=== PATIENT | female | born 1955 | race Caucasian/White ===

== ENCOUNTER 2022-09-13 06:20 | Outpatient (CLI) | payer MEDICARE, OTHER ==
[2022-09-13 06:50] LABS: BASOPHILS % (AUTO) 0.4 %; EOSINOPHILS # (AUTO) 0.1 10^3/uL (0.0-0.7); EOSINOPHILS % (AUTO) 1.9 %; HCT - HEMATOCRIT 40.8 % (37.0-47.0); HGB - HEMOGLOBIN 13.5 g/dL (12.0-16.0); LYMPHOCYTES % (AUTO) 43.6 %; MEAN CORPUSCULAR HEMOGLOBIN 31.2 pg (27.0-31.0); MEAN CORPUSCULAR HGB CONC 33.1 g/dL (32.0-36.0); MEAN CORPUSCULAR VOLUME 94.2 fL (81.0-99.0); MEAN PLATELET VOLUME 9.6 fL (7.9-10.8); MONOCYTES # (AUTO) 0.5 10^3/uL (0.0-1.0); MONOCYTES % (AUTO) 6.9 %; NEUTROPHILS # (AUTO) 3.2 10^3/uL (1.5-6.6); NEUTROPHILS % (AUTO) 47.1 %; PLT - PLATELET COUNT 272 10^3/uL (130-450); RED BLOOD COUNT 4.33 10^6/uL (4.20-5.40); RED CELL DISTRIBUTION WIDTH 12.2 % (12.0-15.0); WHITE BLOOD COUNT 6.8 x10^3/uL (4.8-10.8)
[2022-09-13 07:11] LABS: ALBUMIN 3.7 g/dL (3.2-5.5); ALBUMIN/GLOBULIN RATIO 1.3 (1.0-2.2); ALKALINE PHOSPHATASE 167 IU/L (42-121); ALT ALANINE AMINOTRANSFERASE 35 IU/L (10-60); AST ASPARTATE AMINOTRANSFERASE 38 IU/L (10-42); BILIRUBIN,TOTAL 0.4 mg/dL (0.2-1.0); BUN - BLOOD UREA NITROGEN 10 mg/dL (6-20); CALCIUM 8.9 mg/dL (8.5-10.3); CARBON DIOXIDE - CO2 27 mmol/L (21-32); CHLORIDE 110 mmol/L (101-111); CHOL/HDL RATIO 2.6 (<4.4); CHOLESTEROL 168 mg/dL; CREATININE 0.7 mg/dL (0.4-1.0); GFR - MDRD 84 (>89); GLUCOSE 106 mg/dL (70-100); HDL CHOLESTEROL 65 mg/dL; POTASSIUM 4.2 mmol/L (3.5-5.0); SODIUM 141 mmol/L (135-145); TOTAL PROTEIN 6.5 g/dL (6.7-8.2); TRIGLYCERIDES 33 mg/dL
[2022-09-13 07:22] LABS: THYROID STIMULATING HORMONE 1.68 uIU/mL (0.34-5.60)
[2022-09-13 08:08] LABS: ESTIMATED AVERAGE GLUCOSE 100 mg/dL (70-100); HEMOGLOBIN A1c% 5.1 % (4.27-6.07)
== END 2022-09-13 06:21 | disposition home or self-care (01) ==
LOC: LAB 06:20
PROVIDERS: ATTEND Nurse Practitioner Family
DX: Z00.00 Encounter for general adult medical examination without abnormal findings (principal); E03.9 Hypothyroidism, unspecified
CPT/HCPCS: 36415; 80053; 80061; 83036; 83721; 84153; 84443; 85025

== ENCOUNTER 2022-09-16 16:16 | Outpatient (CLI) | payer MEDICARE, OTHER ==
[2022-09-16 20:41] LABS: CHOL/HDL RATIO 2.4 (<4.4); CHOLESTEROL 191 mg/dL; HDL CHOLESTEROL 78 mg/dL; TRIGLYCERIDES 34 mg/dL
== END 2022-09-16 16:17 | disposition home or self-care (01) ==
LOC: LAB.N 16:16
PROVIDERS: ATTEND Family Medicine
DX: Z00.00 Encounter for general adult medical examination without abnormal findings (principal); R74.8 Abnormal levels of other serum enzymes
CPT/HCPCS: 36415; 80061; 83721; 84075; 84080

== ENCOUNTER 2022-09-29 09:50 | Outpatient (CLI) | payer MEDICARE, OTHER ==
--- NOTE | 2022-09-29 10:39 | DEXA Report ---
PROCEDURE: Dexa Spine and/or Hip INDICATIONS: POST MENOPAUSAL TECHNIQUE: Dual energy x-ray absorptiometry (DXA) was performed on a [employer] System. Regions measur ed are the AP Spine, femoral neck, and if needed forearm. COMPARISON: None. FINDINGS: Lumbar Spine: Bone Mineral Density 0.867 g/cm/cm,T score -2.6. Left Femoral Neck: Bone Mineral Density 0.709 g/cm/cm, T score -2.4. Left Hip: Bone Mineral Density 0.632 g/cm/cm,T score -3.0. (T score greater or equal to -1.0: NORMAL) (T score from -1.1 to -2.4: OSTEOPENIA) (T score less than or equal to -2.5 to: OSTEOPOROSIS) Impression: By WHO criteria, this patient has osteoporosis. Patients with diagnosis of osteoporosis or osteopenia should have regular bone mineral density assess ment. For those eligible for Medicare, routine testing is allowed once every 2 years. Testing frequ ency can be increased for patients who have rapidly progressing disease or for those who are receivin g medical therapy to restore bone mass. Reviewed by: Andrade Huerta MD on 09/29/2022 10:38 AM PDT Approved by: Andrade Huerta MD on 09/29/2022 10:38 AM PDT Station ID: [id number]
== END 2022-09-29 09:51 | disposition home or self-care (01) ==
LOC: DI 09:50
PROVIDERS: ATTEND Nurse Practitioner Family
DX: Z78.0 Asymptomatic menopausal state (principal); M81.0 Age-related osteoporosis without current pathological fracture

== ENCOUNTER 2022-10-01 15:06 | Outpatient (CLI) | payer MEDICARE, OTHER | END 2022-10-01 15:07 | disposition home or self-care (01) | LOC: LAB.N 15:06 | PROVIDERS: ATTEND Nurse Practitioner Family | DX: R74.8 Abnormal levels of other serum enzymes (principal) | CPT/HCPCS: 36415; 82977; 86381 ==

== ENCOUNTER 2022-10-10 09:16 | Outpatient (CLI) | payer MEDICARE, OTHER ==
[2022-10-10 10:04] LABS: ALBUMIN 4.3 g/dL (3.2-5.5); ALBUMIN/GLOBULIN RATIO 1.4 (1.0-2.2); BILIRUBIN,TOTAL 1.1 mg/dL (0.2-1.0); CALCIUM 9.5 mg/dL (8.5-10.3); CREATININE 0.7 mg/dL (0.4-1.0); TOTAL PROTEIN 7.4 g/dL (6.7-8.2)
== END 2022-10-10 09:17 | disposition home or self-care (01) ==
LOC: LAB 09:16
PROVIDERS: ATTEND Nurse Practitioner Family
DX: M81.0 Age-related osteoporosis without current pathological fracture (principal); Z13.220 Encounter for screening for lipoid disorders; R74.8 Abnormal levels of other serum enzymes
CPT/HCPCS: 36415; 80053; 83721

== ENCOUNTER 2023-04-11 16:11 | Outpatient (CLI) | payer MEDICARE, OTHER ==
--- NOTE | 2023-04-12 03:00 | XRAY Report ---
PROCEDURE: Hand 3+V BL INDICATIONS: PAIN OF BILATERAL HANDS,OA OF BOTH HANDS TECHNIQUE: 3 views of the right and left hand(s) acquired. COMPARISON: None. FINDINGS: Bones: Severe right first and moderate left first CMC joint degeneration. Mild bilateral scattered i nterphalangeal joint space narrowing and minimal spurring. No acute osseous abnormality. No suspicio us bony lesions. Soft tissues: No suspicious soft tissue calcifications or masses. IMPRESSION: Severe right first CMC joint degeneration, moderate left first CMC joint degeneration. Mild bilateral interphalangeal joint degeneration. No acute fracture. Reviewed by: Poornima Oliva MD on 04/12/2023 2:58 AM PST Approved by: Poornima Oliva MD on 04/12/2023 2:58 AM PST Station ID: [id number]
== END 2023-04-11 16:12 | disposition home or self-care (01) ==
LOC: DI 16:11
PROVIDERS: ATTEND Nurse Practitioner Family
DX: M18.0 Bilateral primary osteoarthritis of first carpometacarpal joints (principal); M19.041 Primary osteoarthritis, right hand; M19.042 Primary osteoarthritis, left hand

== ENCOUNTER 2023-10-14 07:35 | Outpatient (CLI) | payer MEDICARE, OTHER ==
[2023-10-14 07:46] LABS: BASOPHILS % (AUTO) 0.6 %; EOSINOPHILS # (AUTO) 0.1 10^3/uL (0.0-0.7); HCT - HEMATOCRIT 41.5 % (37.0-47.0); HGB - HEMOGLOBIN 13.4 g/dL (12.0-16.0); LYMPHOCYTES % (AUTO) 42.9 %; MEAN CORPUSCULAR HEMOGLOBIN 30.7 pg (27.0-31.0); MEAN CORPUSCULAR HGB CONC 32.3 g/dL (32.0-36.0); MEAN PLATELET VOLUME 9.3 fL (7.9-10.8); MONOCYTES # (AUTO) 0.6 10^3/uL (0.0-1.0); MONOCYTES % (AUTO) 7.8 %; NEUTROPHILS # (AUTO) 3.3 10^3/uL (1.5-6.6); NEUTROPHILS % (AUTO) 46.6 %; PLT - PLATELET COUNT 290 10^3/uL (130-450); RED BLOOD COUNT 4.37 10^6/uL (4.20-5.40); RED CELL DISTRIBUTION WIDTH 12.2 % (12.0-15.0)
[2023-10-14 08:10] LABS: ALBUMIN 4.2 g/dL (3.2-5.5); ALBUMIN/GLOBULIN RATIO 1.7 (1.0-2.2); ALKALINE PHOSPHATASE 144 IU/L (42-121); ALT ALANINE AMINOTRANSFERASE 28 IU/L (10-60); AST ASPARTATE AMINOTRANSFERASE 28 IU/L (10-42); BILIRUBIN,TOTAL 0.9 mg/dL (0.2-1.0); BUN - BLOOD UREA NITROGEN 19 mg/dL (6-20); CALCIUM 9.4 mg/dL (8.5-10.3); CARBON DIOXIDE - CO2 30 mmol/L (21-32); CHLORIDE 106 mmol/L (101-111); CHOLESTEROL 180 mg/dL; CREATININE 0.8 mg/dL (0.6-1.3); GFR - MDRD 72 (>89); GLUCOSE 96 mg/dL (74-104); HDL CHOLESTEROL 61 mg/dL; LDL CHOLESTEROL,CALCULATED 105 mg/dL; LDL/HDL RATIO 1.7 (<4.4); POTASSIUM 4.4 mmol/L (3.5-4.5); SODIUM 139 mmol/L (135-145); TOTAL PROTEIN 6.7 g/dL (6.4-8.9); TRIGLYCERIDES 71 mg/dL; VLDL CHOLESTEROL 14 mg/dL
[2023-10-14 08:15] LABS: ESTIMATED AVERAGE GLUCOSE 94 mg/dL (70-100); HEMOGLOBIN A1c% 4.9 % (4.27-6.07)
== END 2023-10-14 07:36 | disposition home or self-care (01) ==
LOC: LAB 07:35
PROVIDERS: ATTEND Nurse Practitioner Family
DX: Z00.00 Encounter for general adult medical examination without abnormal findings (principal); Z13.220 Encounter for screening for lipoid disorders; E03.9 Hypothyroidism, unspecified
CPT/HCPCS: 36415; 80053; 80061; 83036; 83721; 84443; 85025

== ENCOUNTER 2023-10-21 08:14 | Outpatient (CLI) | payer MEDICARE, OTHER ==
--- NOTE | 2023-10-21 13:33 | DEXA Report ---
PROCEDURE: Dexa Spine and/or Hip INDICATIONS: OSTEOPOROSIS, POST MENOPAUSAL TECHNIQUE: Dual energy x-ray absorptiometry (DXA) was performed on a [employer] System. Regions measur ed are the AP Spine, femoral neck, and if needed forearm. COMPARISON: 09/29/2022 FINDINGS: Lumbar Spine: Bone Mineral Density: 0.839 g/cm/cm,T score: -2.8. Osteoporosis, change from previous -3.2%, signifi cant Left Femoral Neck: Bone Mineral Density: 0.747 g/cm/cm, T score: Is 2.1, osteopenia. Left Hip: Bone Mineral Density: 0.669 g/cm/cm,T score: -2.7, osteoporosis. Change from previous 5.9%, significa nt (T score greater or equal to -1.0: NORMAL) (T score from -1.1 to -2.4: OSTEOPENIA) (T score less than or equal to -2.5 to: OSTEOPOROSIS) Impression: By WHO criteria, this patient has osteoporosis. Significant interval decrease in bone mineral density of the lumbar spine. Significant interval increase in bone mineral density of the hip. Patients with diagnosis of osteoporosis or osteopenia should have regular bone mineral density assess ment. For those eligible for Medicare, routine testing is allowed once every 2 years. Testing frequ ency can be increased for patients who have rapidly progressing disease or for those who are receivin g medical therapy to restore bone mass. Reviewed by: Tomeka Singh MD on 10/21/2023 1:32 PM PDT Approved by: Tomeka Singh MD on 10/21/2023 1:32 PM PDT Station ID: [id number]
== END 2023-10-21 08:15 | disposition home or self-care (01) ==
LOC: DI 08:14
PROVIDERS: ATTEND Nurse Practitioner Family
DX: M81.0 Age-related osteoporosis without current pathological fracture (principal); Z78.0 Asymptomatic menopausal state